=== PATIENT | female | born 1945 | race Hispanic/Latino ===

== ENCOUNTER 2017-07-14 13:00 | Inpatient (IN) | payer MEDICARE, OTHER ==
[2017-07-14 13:42] VITALS: BMI 25.3
[2017-07-21] MEDS ORDERED: CEFAZOLIN/Water 2 GM/20 ML SYRINGE ONE (07:32)
[2017-07-21] MEDS ORDERED: Tranexamic Acid 1,000 MG/100 ML BAG ONE ×2 (07:32→10:58)
[2017-07-21] MEDS ORDERED: Ropivacaine 0.2% HCl/PF 20 ML ONE (08:30)
[2017-07-21] MEDS ORDERED: Fentanyl 100 MCG/2 ML VIAL ONE ×3 (08:30→11:33)
[2017-07-21] MEDS ORDERED: Midazolam HCl 2 mg/2 ml Vial ONE (08:30)
[2017-07-21] MEDS ORDERED: Zolpidem Tartrate 5 MG TAB PO PRN (08:49)
[2017-07-21] MEDS ORDERED: Ropivacaine HCl/PF 250 ML in Premix Bag 1 BAG NERVE BLCK SCH (08:49)
[2017-07-21] MEDS ORDERED: Ondansetron HCl/PF 4 MG/2 ML Vial IVP PRN ×2 (08:49→11:50)
[2017-07-21] MEDS ORDERED: traMADol HCl 50 MG TAB PO PRN ×2 (08:49)
[2017-07-21] MEDS ORDERED: HYDROcodone/Acetaminophen 10/325 mg Tablet PO PRN (08:49)
[2017-07-21] MEDS ORDERED: Promethazine HCl 25 MG/ML VIAL IM PRN (08:49)
[2017-07-21] MEDS ORDERED: Fentanyl 100 MCG/2 ML VIAL IV PRN (08:50)
[2017-07-21] MEDS ORDERED: Bupivacaine/Epinephrine 0.25% 30 ML VIAL ONE ×3 (09:06→09:08)
[2017-07-21] MEDS ORDERED: Levofloxacin 500 mg/D5W 100 ml Premix Bag ONE (09:18)
[2017-07-21] MEDS ORDERED: Tranexamic Acid 1,000 MG in Sodium Chloride 0.9% 100 ML IVPB SCH (11:15)
[2017-07-21] MEDS ORDERED: Ropivacaine 0.5% HCl/PF (150 MG/30 ML VIAL) ONE ×2 (11:34→16:26)
--- NOTE | 2017-07-21 12:54 | OP ---
DATE OF PROCEDURE: 07/21/2017 PREOPERATIVE DIAGNOSIS: Left knee osteoarthritis. POSTOPERATIVE DIAGNOSIS: Left knee osteoarthritis. PROCEDURE PERFORMED: Left total knee arthroplasty. STAFF: Hernan Villafana M.D. REVENUE SPECIALIST: Alvaro Saenz PA-C. ANESTHESIA: [place]. The patient received a LMA intubation with an adductor canal with a single shot sciatic. ESTIMATED BLOOD LOSS: 100 mL. TOURNIQUET TIME: 61 minutes. ANTIBIOTICS: Levaquin 500 mg and Ancef 2 grams. IMPLANTS: A Sparks cruciate retaining femur size 3, tibia size 3, cruciate sparing, 9 mm poly, A27 patella, Daksha implants, it's a Triathlon implant. COMPLICATIONS: None. HISTORY OF PRESENT ILLNESS: Ms. Garcia is a 72-year-old female who presents after a year of left kn ee pain. She has undergone aspirations and injection. The patient's pain can be as high as 9-10/10. She has failed conservative management. The patient and family understood the risks and benefits o f a left total knee arthroplasty to include pain, scar, bleeding, infection, damage to vital structur es, decreased range of motion or strength, continued pain despite surgical intervention. The patient understood the risks and benefits and elected to proceed. PROCEDURE IN DETAIL: Timeout was performed designating the patient's left lower extremity as the ope rative site based on sight, consents and markings. After timeout, the patient's left lower extremity was prepped and draped in sterile fashion. Tourniquet was brought up and left up for a total of 61 minutes. Anterior midline approach with medial patellar incision was made. We everted the patella, excised the fat pad, released the medial soft tissues, took down osteophytes, exposed the distal femu r, took the ACL, mapped out the distal femur, she had 0 degrees varus valgus and 4 degrees anterior s jackelin and took 6 and 9 respectively. We cut, had a good butterfly. We then mapped out the size 3, I felt like a 2 was too small and a 4 was too large from side to side so we settled on a size 3. We pi nned our size 3 cutter [address] cut into place, cut our anterior, posterior chamfer cuts, anterior and pos terior chamfer cuts. We then removed all osteophytes. We then placed a pickle fork, released the PC L off the posterior aspect portion just above the PCL to help expose and protect it better. We then pinned our tray into place. We mapped out and cut 1 in 7 degrees, respectively. We then removed the bone, cleaned out, washed and we did our medial soft tissue release. We placed a laminar airport operations coordinator, removed the medial lateral meniscus to ensure that we decompressed the PCL of any posterior osteophyt es, had no large osteophytes posteriorly. We then pinned our tibia tray size 3 based on anterior 1/3 in line with tibial tubercle. We then washed, placed our poly into position, a size 3. We had good full extension, stable varus and valgus, full extension as well as 30 degrees. We then everted our patella, went from a 22 down to about 11 mm and placed an A27 patella and button. We had good tracki ng, removed it. We then washed out the joint. We cemented our tibia, placed our poly, cemented our femur, placed the patient in extension, removed all excess cement. Flexed up, removed all excess vanda ent and pulled the patient in extension, placed our poly for our patella, removed any excess cement. We then closed the medial patellar approach with 0 Vicryl, 2 Quill, 0 Quill, 2-0 Quill, and glue. The patient will be followed in-house, received postop antibiotics, clindamycin and Levaquin.
--- NOTE | 2017-07-21 13:14 | RAD ---
LEFT KNEE TWO VIEWS: History: 72-year-old female with recent total knee arthroplasty post-operative changes. FINDINGS: Left total knee recent arthroplasty changes are noted. No dislocation or periprosthetic fracture. Dif fuse bone demineralization. IMPRESSION: Recent status post knee arthroplasty. POS: [facility]
[2017-07-21] MEDS ORDERED: Fentanyl 100 MCG/2 ML VIAL SLOW IVP PRN (15:41)
[2017-07-21] MEDS ORDERED: diphenhydrAMINE 25 MG CAP PO PRN (15:41)
[2017-07-21] MEDS ORDERED: Sodium Chloride 0.9% 1,000 ML IV SCH (15:41)
[2017-07-21] MEDS ORDERED: CEFAZOLIN 2 GM in Sodium Chloride 0.9% 100 ML IVPB SCH (15:41)
[2017-07-21] MEDS ORDERED: Acetaminophen 325 MG TAB PO PRN (15:41)
[2017-07-21] MEDS ORDERED: ePHEDrine/0.9% NaCl/PF SYRINGE 50 mg/10 ml ONE (16:51)
[2017-07-21] MEDS ORDERED: Propofol 200 MG/20 ML VIAL ONE (16:51)
[2017-07-21] MEDS ORDERED: Ondansetron HCl/PF 4 MG/2 ML Vial ONE (16:51)
[2017-07-21] MEDS ORDERED: Lidocaine 1% PF 5 ML VIAL ONE (16:51)
[2017-07-21] MEDS ORDERED: Dexamethasone 20 MG/5 ML VIAL ONE (16:51)
[2017-07-21] MEDS ORDERED: PHENYLEPHRINE-NS 100 MCG/ML 10 ML SYRINGE ONE (16:51)
[2017-07-21] MEDS: CEFAZOLIN/Water 2 GM/20 ML SYRINGE SLOW IVP SCH (17:21)
[2017-07-21] MEDS ORDERED: hydrALAZINE 20 MG/ML VIAL SLOW IVP PRN (18:29)
[2017-07-21 19:51] LABS: Anion Gap 12 mmol/L (10-20); BUN (Urea Nitrogen) 12 mg/dL (9.8-20.1); Calc. Creatinine Clearance 61 mL/min (70-130); Calcium 9.6 mg/dL (7.8-10.44); Carbon Dioxide 24 mmol/L (23-31); Chloride 107 mmol/L (98-107); Estimated GFR-MDRD 65
[2017-07-21] MEDS: Sodium Chloride 0.9% 1,000 ML IV SCH ×2 (21:00→21:07)
[2017-07-21] MEDS: Ferrous Gluconate 324 MG TAB PO SCH (21:01)
[2017-07-21] MEDS: Senokot S 8.6-50 MG TAB PO SCH (21:01)
--- NOTE | 2017-07-21 22:56 | CON ---
DATE OF CONSULTATION: 07/21/2017 CONSULTING PHYSICIAN: Dr. Hrenan Villafana. REASON FOR ADMISSION: Status post left total knee arthroplasty. REASON FOR CONSULT: Medical management. HISTORY OF PRESENT ILLNESS: This is a 72-year-old pleasant lady who was apparently in usual state of health, came into the hospital because of left knee pain for over a year. Dr. Hernna Villafana did a left total knee arthroplasty and the patient has been admitted for postoperative observation. The pa tient at the time of my interview denies any shortness of breath, chest pain, she says the pain manag ement is adequate, is eating well, peeing well and also took a few steps with physical therapy. She denies any symptoms right now. No fever, no chills. PAST MEDICAL HISTORY: Significant for arthritis and high blood pressure, hypothyroidism, depression, and arthritis. MEDICATIONS: List includes omega 3, levothyroxine, Plaquenil, Zyprexa, diltiazem, Zoloft. ALLERGIES: IBUPROFEN. SOCIAL HISTORY: Does not smoke, drink or do recreational drugs. PAST SURGICAL HISTORY: Gallbladder, hysterectomy, back surgery in 2013 for some vertebral adjustment . FAMILY HISTORY: Negative for diabetes and hypertension. REVIEW OF SYSTEMS: Significant for some left knee discomfort otherwise no fever, no chills, no heada umberto, no appetite, no hearing loss, no latencies. No cough, no chest pain, diarrhea, dysuria, or poly uria. No memory or mood changes. No neck pain. PHYSICAL EXAMINATION: VITAL SIGNS: Blood pressure is 133/67, afebrile, pulse is 74, breathing comfortably on room air. GENERAL: The patient is lying in bed in no apparent distress. HEENT: Atraumatic, normocephalic. Pupils are equal, round, react to light. Extraocular movements i ntact. Mucous membranes moist. NECK: Supple. No JVD. CHEST: Breath sounds. There are no rales or rhonchi. HEART: S1, S2. No murmurs or gallops. ABDOMEN: Soft. EXTREMITIES: Left knee with dressing. Right knee: No cyanosis, clubbing, edema. Distal pulses pre sent. NEUROLOGIC: Alert, awake, oriented. No cranial deficits. No sensorimotor deficits. LABORATORY DATA: WBC count is 8.7, hemoglobin is 12, potassium is 3.5, creatinine 0.7. ASSESSMENT AND PLAN: 1. Left total knee arthroplasty. Pain management, physical therapy and follow primary's plan. 2. Hypothyroidism. We will continue levothyroxine from home medications. 3. Depression. We will continue Zoloft for now and will start Zyprexa tomorrow in the morning. 4. Hypertension. We will do p.r.n. hydralazine for now and start diltiazem tomorrow in the morning. 5. Sequential compression devices for deep venous thrombosis prophylaxis. Thanks Dr. Villafana for letting me participate in this patient's care and make recommendations as clin ical course evolves.
[2017-07-22] MEDS: CEFAZOLIN/Water 2 GM/20 ML SYRINGE SLOW IVP SCH (00:32)
[2017-07-22 05:56] LABS: Hematocrit 35.6 % (36.0-47.0); Mean Platelet Volume 7.7 fL (7.4-10.4); Red Blood Cell (RBC) Count 3.73 mill/uL (4.20-5.40); White Blood Cell (WBC) Count 14.8 thou/uL (4.8-10.8)
[2017-07-22 05:57] LABS: #Lymphocytes 1.5 thou/uL (1.20-3.40); #Monocytes 0.4 thou/uL (0.11-0.59); #Neutrophils 13.1 thou/uL (1.40-6.50); %Eosinophils 0.1 % (0.0-10.0); %Lymphocytes 9.9 % (21.0-51.0); %Monocytes 2.5 % (0.0-10.0); Hematocrit 35.2 % (36.0-47.0); Mean Platelet Volume 7.7 fL (7.4-10.4); Red Blood Cell (RBC) Count 3.68 mill/uL (4.20-5.40)
[2017-07-22] MEDS: Levothyroxine Sodium 25 MCG TAB PO SCH (06:09)
[2017-07-22] MEDS: Ferrous Gluconate 324 MG TAB PO SCH ×2 (08:21→20:33)
[2017-07-22] MEDS: Senokot S 8.6-50 MG TAB PO SCH ×2 (08:21→20:33)
[2017-07-22] MEDS: Multivitamin W/ Minerals 1 TAB PO SCH (08:21)
[2017-07-22] MEDS ORDERED: HumaLOG 300 UNITS/3 ML VIAL SC PRN (11:11)
[2017-07-22] MEDS ORDERED: Dextrose 5% in Water 1,000 ML IV PRN (11:11)
[2017-07-22] MEDS ORDERED: Dextrose 50% Abboject 50 ML SYRINGE SLOW IVP PRN (11:11)
[2017-07-22] MEDS: Sodium Chloride 0.9% 1,000 ML IV SCH (12:20)
[2017-07-22] MEDS: HYDROcodone/Acetaminophen 10/325 mg Tablet PO PRN ×2 (13:38→18:01)
--- NOTE | 2017-07-22 15:16 | PDOC.PN ---
- Subjective Encounter Start Date: 07/22/17 Encounter Start Time: 15:15 Patient seen and examined. No new complaints. No overnight events - Objective MAR Reviewed: Yes Vital Signs & Weight: Vital Signs (12 hours) Temp Pulse Resp BP Pulse Ox 07/22/17 11:35 98.3 F 75 20 155/75 H 95 07/22/17 08:28 98.5 F 77 12 91 L 07/22/17 08:10 98.5 F 77 12 125/54 L 91 L 07/22/17 04:00 98.3 F 68 16 139/57 L 93 L Weight Admit Weight 143 lb Weight 143 lb I&O: 07/21/17 07/22/17 07/23/17 06:59 06:59 06:59 Intake Total 800 Output Total 900 Balance -100 Result Diagrams: 07/22/17 05:15 07/21/17 19:07 Additional Labs: Accuchecks 07/22/17 11:46 POC Glucose 164 H Phys Exam - Physical Examination Constitutional: NAD HEENT: PERRLA Neck: no JVD Respiratory: no wheezing Cardiovascular: no significant murmur Gastrointestinal: non-tender Musculoskeletal: pulses present lt knee in dressing Neurological: moves all 4 limbs Psychiatric: A&O x 3 Dx/Plan (1) S/P total knee arthroplasty Code(s): Z96.659 - PRESENCE OF UNSPECIFIED ARTIFICIAL KNEE JOINT Status: Acute (2) HTN (hypertension) Code(s): I10 - ESSENTIAL (PRIMARY) HYPERTENSION Status: Acute (3) Elevated glucose Code(s): R73.09 - OTHER ABNORMAL GLUCOSE Status: Acute (4) Hypothyroid Code(s): E03.9 - HYPOTHYROIDISM, UNSPECIFIED Status: Acute (5) Depressed Code(s): F32.9 - MAJOR DEPRESSIVE DISORDER, SINGLE EPISODE, UNSPECIFIED Status : Acute - Plan * cont pain mx, physical therapy * check hba1c * iss
[2017-07-23] MEDS: Levothyroxine Sodium 25 MCG TAB PO SCH (06:10)
[2017-07-23] MEDS: HYDROcodone/Acetaminophen 10/325 mg Tablet PO PRN ×2 (06:10→13:35)
[2017-07-23 07:18] LABS: Hematocrit 36.2 % (36.0-47.0); Mean Platelet Volume 7.4 fL (7.4-10.4); Red Blood Cell (RBC) Count 3.73 mill/uL (4.20-5.40); White Blood Cell (WBC) Count 10.3 thou/uL (4.8-10.8)
[2017-07-23] MEDS: Ferrous Gluconate 324 MG TAB PO SCH (08:34)
[2017-07-23] MEDS: Multivitamin W/ Minerals 1 TAB PO SCH (08:34)
[2017-07-23] MEDS: Senokot S 8.6-50 MG TAB PO SCH (08:35)
--- NOTE | 2017-07-23 12:09 | PDOC.PN ---
- Subjective Encounter Start Date: 07/23/17 Encounter Start Time: 12:08 Patient seen and examined. No new complaints. No overnight events - Objective MAR Reviewed: Yes Vital Signs & Weight: Vital Signs (12 hours) Temp Pulse Resp BP Pulse Ox 07/23/17 08:13 97.8 F 79 14 154/75 H 92 L 07/23/17 04:00 98.2 F 73 16 117/68 91 L Weight Admit Weight 143 lb Weight 143 lb I&O: 07/22/17 07/23/17 07/24/17 06:59 06:59 06:59 Intake Total 800 240 Output Total 900 3550 Balance -100 -3310 Result Diagrams: 07/23/17 06:59 07/21/17 19:07 Additional Labs: Accuchecks 07/23/17 07/22/17 07/22/17 06:18 19:42 16:24 POC Glucose 115 H 166 H 172 H Phys Exam - Physical Examination Constitutional: NAD HEENT: PERRLA Neck: no JVD Respiratory: no wheezing Cardiovascular: no significant murmur Gastrointestinal: non-tender Musculoskeletal: pulses present Neurological: moves all 4 limbs Psychiatric: A&O x 3 Dx/Plan (1) S/P total knee arthroplasty Code(s): Z96.659 - PRESENCE OF UNSPECIFIED ARTIFICIAL KNEE JOINT Status: Acute (2) HTN (hypertension) Code(s): I10 - ESSENTIAL (PRIMARY) HYPERTENSION Status: Acute (3) Elevated glucose Code(s): R73.09 - OTHER ABNORMAL GLUCOSE Status: Acute (4) Hypothyroid Code(s): E03.9 - HYPOTHYROIDISM, UNSPECIFIED Status: Acute (5) Depressed Code(s): F32.9 - MAJOR DEPRESSIVE DISORDER, SINGLE EPISODE, UNSPECIFIED Status : Acute - Plan * doing good * continue pt, pain mx * for placement
[2017-07-23 15:23] VITALS: BP 166/78; TEMP 98.5
== END 2017-07-23 15:56 | disposition home or self-care (01) | DRG 470 ==
LOC: SJJU 07-21 07:12 → SURG A 07-21 15:31
PROVIDERS: ADMIT Orthopaedic Surgery; ATTEND Orthopaedic Surgery
PROC: 0SRD0J9 Replacement of Left Knee Joint with Synthetic Substitute, Cemented, Open Approach (ICD-10-PCS; principal; 2017-07-21)
PROC: 3E0T3BZ Introduction of Anesthetic Agent into Peripheral Nerves and Plexi, Percutaneous Approach (ICD-10-PCS; 2017-07-21)
DX: M17.12 Unilateral primary osteoarthritis, left knee (principal); I10 Essential (primary) hypertension; E03.9 Hypothyroidism, unspecified; F32.9 Major depressive disorder, single episode, unspecified; R73.09 Other abnormal glucose; Z88.8 Allergy status to other drugs, medicaments and biological substances
CPT/HCPCS: 36415; 36416; 80048; 83036; 85027; A4216; C1713; C1776; G8978-GP-CM; G8979-GP-CJ; J1100; J1956; J2001; J2250; J2405; J2704; J2795; J3010

== ENCOUNTER → 2017-07-14 | Outpatient (CLI) | payer MEDICARE, OTHER ==
[2017-07-14 14:27] LABS: Hematocrit 39.2 % (36.0-47.0); Mean Platelet Volume 7.1 fL (7.4-10.4); Red Blood Cell (RBC) Count 4.09 mill/uL (4.20-5.40); White Blood Cell (WBC) Count 8.7 thou/uL (4.8-10.8)
[2017-07-14 14:28] LABS: Bilirubin Negative (Negative); Blood, Urine Negative (Negative); Glucose, Urine (Dipstick) Negative (Negative); Ketone, Urine Negative (Negative); Nitrite Negative (Negative); Protein, Urine (Dipstick) Negative (Neg-Trace); Urobilinogen 0.2 mg/dL (0.2-1.0)
[2017-07-14 14:30] LABS: Bacteria/HPF 1+ HPF (None Seen); Hyaline Casts/LPF 0-3 HYALINE CAST LPF (0-3 Hyaline)
[2017-07-14 14:38] LABS: RBC/HPF 0-3 HPF (0-3)
[2017-07-14 14:41] LABS: Prothrombin Time 12.8 SEC (12.0-14.7)
[2017-07-14 14:50] LABS: Anion Gap 12 mmol/L (10-20); BUN (Urea Nitrogen) 13 mg/dL (9.8-20.1); Calc. Creatinine Clearance 0 mL/min (70-130); Calcium 10.4 mg/dL (7.8-10.44); Carbon Dioxide 24 mmol/L (23-31); Chloride 108 mmol/L (98-107); Estimated GFR-MDRD 78
== END ==
LOC: LABBT 09:00
PROVIDERS: ATTEND Orthopaedic Surgery
DX: Z01.818 Encounter for other preprocedural examination (principal); M17.12 Unilateral primary osteoarthritis, left knee
CPT/HCPCS: 80048; 81001; 85027; 85610; 86850; 86900; 86901; 87081; 93005; 93010

== ENCOUNTER 2017-12-04 11:17 | Outpatient (CLI) | payer MEDICARE, OTHER | END 2017-12-04 11:18 | disposition home or self-care (01) | LOC: BICMRI 11:17 | PROVIDERS: ATTEND Urology | DX: N28.89 Other specified disorders of kidney and ureter (principal); N28.9 Disorder of kidney and ureter, unspecified | CPT/HCPCS: 74183 ==